=== PATIENT | female | born 1945 | race Caucasian/White ===

== ENCOUNTER 2020-02-12 12:44 | Outpatient (CLI) | payer MEDICARE, SELFPAY ==
--- NOTE | ~2020-02-12 | MMUS_ITS ---
EXAMINATION: MM diagnostic randy LT w april, US breast LT limited HISTORY: Follow-up left breast mass TECHNIQUE: Additional 3-D tomosynthesis images of the left breast were performed and synthetic 2-D im ages were generated. CAD analysis was submitted and interpreted. High resolution left breast ultrasou nd was performed. COMPARISON: Comparison to multiple prior studies sequentially, with oldest reviewed study dated 05/15. FINDINGS: MAMMOGRAPHIC FINDINGS: Breast composed of scattered areas of fibroglandular density. Significantly decreased size of mass in the upper aspect of the left breast on MLO view, likely benign. No suspicious calcifications or arch itectural distortion. ULTRASOUND: Left breast ultrasound: At 11:00, 1 cm from the nipple, there is a lipoma measuring 7 mm, benign. In the previous area of abn ormality at 10:00, 8 cm from the nipple, there is no sonographic abnormality. No suspicious solid or cystic masses to suggest malignancy. IMPRESSION: 1. No evidence for malignancy in the left breast. Benign findings. 2. Routine yearly screening mammogram and regular clinical breast examination are recommended. BI-RADS Category 2: Benign finding(s). Reviewed, dictated and finalized at location A. IMPRESSION: 1. No evidence for malignancy in the left breast. Benign findings. 2. Routine yearly screening mammogram and regular clinical breast examination a re recommended. BI-RADS Category 2: Benign finding(s).
== END 2020-02-12 12:45 | disposition home or self-care (01) ==
PROVIDERS: PCP Family Medicine; Visit Provider Family Medicine
DX: R92.8 Other abnormal and inconclusive findings on diagnostic imaging of breast (principal)
CPT/HCPCS: 76642; 77061; 77065; G0279

== ENCOUNTER 2020-11-20 11:28 | Outpatient (CLI) | payer MEDICARE, SELFPAY ==
[2020-11-20 12:37] LABS: D Dimer 1.28 ug/mL (<0.48)
[2020-11-20 12:41] LABS: Troponin I < 0.012 ng/mL (0.000-0.034)
== END 2020-11-20 11:29 | disposition home or self-care (01) ==
LOC: ANHLAB 11:31
PROVIDERS: PCP Physician Assistant; Visit Provider Physician Assistant
DX: R07.9 Chest pain, unspecified (principal)
CPT/HCPCS: 36415; 84484; 85380

== ENCOUNTER 2020-11-20 16:37 | Emergency (ER) | payer MEDICARE, SELFPAY ==
--- NOTE | ~2020-11-20 | XR_ITS ---
EXAMINATION: XR chest 1V portable INDICATION: Generalized chest pain TECHNIQUE: Portable AP chest at 1746 hours COMPARISON: None available FINDINGS: The lungs are free of acute opacities. There is no pleural effusion or pneumothorax. The ca rdiomediastinal silhouette is normal. IMPRESSION: 1. No acute cardiopulmonary abnormality. Reviewed, dictated and finalized at location A.
--- NOTE | ~2020-11-20 | CT_ITS ---
EXAMINATION: CTA chest PE protocol DATE: 11/20/2020 18:12 INDICATION: Chest pain TECHNIQUE: Computed tomography angiography (CTA) of the chest was performed with 100 mL Omnipaque-350 intravenous contrast timed to evaluate the pulmonary arteries. Coronal maximum intensity projection 3D-reconstructions were created by the technologist. The dose-length product (DLP) was 146.42 mGy-cm. Automated exposure control and iterative reconstruction technique were employed. COMPARISON: None. FINDINGS: The pulmonary arteries are well-opacified. No pulmonary embolism is identified. There is mi ld dependent atelectasis. No focal airspace opacities are present. There is no pleural effusion or pn eumothorax. No pathologically enlarged thoracic lymph nodes are identified. The heart size is normal. There is a 10 mm hyperdense lesion of the left kidney upper pole. Cysts of the visualized liver david ure up to 1.5 cm in the left hepatic lobe. There is a 1.3 cm cystic lesion tail of the pancreas. Ther e is an age-indeterminate compression fracture and the T11 vertebral body. IMPRESSION: 1. No pulmonary embolism or acute cardiopulmonary abnormality. 2. Cystic lesion in the tail of the pancreas and indeterminate hyperdense lesion of the left kidney u pper pole. Nonemergent follow-up with abdominal MRI without and with contrast is recommended for simu ltaneous evaluation of both lesions. Reviewed, dictated and finalized at location A. IMPRESSION: 1. No pulmonary embolism or acute cardiopulmonary abnormality. 2. Cystic lesion in the tail of the pancreas and indeterminate hyperdense lesio n of the left kidney upper pole. Nonemergent follow-up with abdominal MRI witho ut and with contrast is recommended for simultaneous evaluation of both lesions .
[2020-11-20 16:42] VITALS: BP 174/82; PULSE 71; RESP 27; TEMP 36.9; O2SAT 100
--- NOTE | 2020-11-20 16:56 | ECG_ITS ---
Measurements Intervals [place] Rate: 66 P: 55 MA: 137 QRS: -19 QRSD: 105 T: 12 QT: 396 QTc: 417 Interpretive Statements SINUS RHYTHM VOLTAGE CRITERIA FOR LVH BORDERLINE T WAVE ABNORMALITY- ANT/INF LEADS BASELINE ARTIFACT- I, II, III, AVR, AVL BORDERLINE ECG Electronically Signed On 11-21-2020 7:09:10 CDT by Nilesh Rhodes D.O.
[2020-11-20 18:07] LABS: Estimated CRCL calculation 31 ml/min; Estimated Glomerular Filt Rate 48
--- NOTE | 2020-11-20 18:17 | ED.GENADULT ---
HPI - General Adult General Chief complaint: Recheck/Abnormal Lab/Rx Stated complaint: elevated D-dimer today from pcp Time Seen by Provider: 11/20/20 16:47 Source: patient and family Mode of arrival: ambulatory Limitations: no limitations History of Present Illness HPI narrative: Patient is a 75-year-old female who presents to emergency department for evaluation of midsternal chest pain that lasted approximately 3 hours last night after dinner patient had [place] food noted that the pain began shortly thereafter lasted 3 hours and resolved upon going to sleep and has since been chest pain-free without discomfort patient had blood work performed by primary care was told she had an elevated D-dimer and was referred to emergency department for further evaluation. Patient has not taken anything for symptoms Related Data Allergies Allergy/AdvReac Type Severity Reaction Status Date / Time No Known Allergies Allergy Verified 11/20/20 16:55 Review of Systems Review of Systems: All systems reviewed & are unremarkable except as noted in HPI and below PMFSH Past Medical History Medical History (Updated 11/20/20 @ 20:47 by Eliot Shepard PA-C) Hyperlipidemia Hypertension Hypothyroidism Social History Social History (Updated 11/20/20 @ 18:36 by Eliot Shepard PA-C) Smoking status: Never smoker Substance use type: marijuana Exam Narrative: Exam Narrative: GENERAL: Well-appearing, well-nourished, and in no acute distress. HEAD: Normocephalic, atraumatic. EYES: PERRLA and EOMI. ENT: Nares clear, no rhinorrhea or epistaxis. Mucous membranes moist. CHEST: Clear to auscultation. No respiratory distress. No wheezes rales or rhonchi HEART: Regular rate and rhythm. No murmur heard. Normal peripheral pulses. ABDOMEN: Soft, nontender, nondistended, EXTREMITIES: Normal range of motion. No edema. SKIN: Warm, dry, no rash. NEURO: No focal deficits. Alert and oriented x3. PSYCH: Normal mood and affect. Course Course Emergency Course: Patient is a 75-year-old female who presented with pain after eating [place] food last night that lasted 3 hours and resolved patient had blood work performed this morning to include a troponin and D-dimer the troponin was negative the D-dimer was positive patient was sent in for CT imaging to rule out pulmonary embolus the CT imaging did not show any pulmonary embolism or other cardiopulmonary disease. Patient has remained pain-free throughout the day. Patient had negative troponin in the ER tonight. Patient will be discharged home for follow-up with primary care who she will contact tomorrow and will also be given cardiology's number to follow-up with as well. Patient was offered inpatient treatment but prefers to go home and does not want to stay in the hospital. Patient is hemodynamically stable ABCs and vital signs intact and stable Vital Signs Vital signs: Vital Signs Temperature 98.4 F 11/20/20 16:42 Pulse Rate 71 11/20/20 16:42 Respiratory Rate 27 H 11/20/20 16:42 Blood Pressure 174/82 H 11/20/20 16:42 Pulse Oximetry 100 11/20/20 16:42 Temperature 98.4 F 11/20/20 16:42 Pulse Rate 67 11/20/20 19:07 Respiratory Rate 19 11/20/20 19:07 Blood Pressure 138/59 L 11/20/20 19:07 Pulse Oximetry 96 11/20/20 19:07 Medical Decision Making MDM Narrative Medical decision making narrative: Patients EKGs and labs are without significant high risk changes. Cardiac risk factors were reviewed. Patient is felt likely to be low risk for ACS and reasonable for further risk stratification testing as an outpatient. Pain was not sudden or maximal in onset without tearing or ripping. quality. No other signs or symptoms to suggest aortic dissection. A low-risk Wells criteria is noted. PE is felt to be unlikely. No pneumonia or URI symptoms were seen on evaluation today. Patient is felt to b reasonable for continued evaluation as an outpatient. Patient had negative CT imaging for
[2020-11-20 18:28] LABS: Basophils Absolute Auto 0.1 K/mm3 (0.0-0.1); Basophils Percent Auto 0.8 % (0.2-1.2); Eosinophils Absolute Auto 0.2 K/mm3 (0-0.3); Eosinophils Percent Auto 2.8 % (0-4.4); Hematocrit 40.7 % (37.0-47.0); Hemoglobin 13.8 g/dL (12.0-15.0); Immature Granulocyte Absolute 0.06 K/mm3 (0.00-0.031); Immature Granulocyte Percent A 0.8 % (0-0.5); Lymphocytes Absolute Auto 1.88 K/mm3 (0.9-3.2); Lymphocytes Percent Auto 25.4 % (18.3-44.2); Mean Corpuscular HGB Conc 33.9 g/dl (32-36); Mean Corpuscular Volume 91.5 fl (80-100); Mean Platelet Volume 10.5 fl (7.4-10.4); Monocytes Absolute Auto 0.7 K/mm3 (0.1-0.6); Monocytes Percent Auto 9.3 % (2.6-8.5); Neutrophils Absolute Auto 4.5 K/mm3 (1.3-6.7); Neutrophils Percent Auto 60.9 % (45.5-73.1); Platelet Count Result 352 k/mm3 (150-375); Red Blood Count 4.45 M/mm3 (4.2-5.4); Red Cell Distribution Width 13.2 % (11.5-14.5); White Blood Count 7.4 K/mm3 (4.5-10.0)
[2020-11-20 18:38] LABS: Prothrombin Time 13.4 Seconds (11.1-14.7)
[2020-11-20 18:39] LABS: Partial Thromboplastin Time 22.4 SECONDS (22.3-36.8)
[2020-11-20 19:07] VITALS: BP 138/59; PULSE 67; RESP 19; O2SAT 96
[2020-11-20 19:18] LABS: Alanine Aminotransferase 16 U/L (4-35); Albumin Level 3.8 g/dL (3.5-5.1); Alkaline Phosphatase 54 U/L (38-126); Anion Gap 3 mmol/L (8-16); Aspartate Amino Transferase 28 U/L (14-36); Bilirubin,Total 0.6 mg/dL (0.2-1.3); Blood Urea Nitrogen 25 mg/dL (7-17); Calcium 9.2 mg/dL (8.4-10.2); Carbon Dioxide 33 mmol/L (22-30); Chloride 101 mmol/L (98-107); Estimated CRCL calculation 33 ml/min; Estimated Glomerular Filt Rate 54; Glucose 96 mg/dL (65-105); Lipase 71 U/L (23-300); Potassium 3.3 mmol/L (3.4-5.0); Sodium 137 mmol/L (137-145)
[2020-11-20 19:30] LABS: NT Pro B Type Natriuretic Pept 214 PG/ML (5-100); Troponin I < 0.012 ng/mL (0.000-0.034)
[2020-11-20 20:52] VITALS: BP 160/64; PULSE 78; RESP 16; TEMP 36.2; O2SAT 98
== END 2020-11-20 20:53 | disposition home or self-care (01) ==
PROVIDERS: Emergency Medicine Emergency Medical Services; Emergency Provider Emergency Medicine; PCP Physician Assistant
DX: R07.2 Precordial pain (principal); E78.5 Hyperlipidemia, unspecified; E03.9 Hypothyroidism, unspecified; I10 Essential (primary) hypertension; R94.31 Abnormal electrocardiogram [ECG] [EKG]
CPT/HCPCS: 36415; 71045; 71275; 80053; 83690; 83880; 84484; 85025; 85380; 85610; 85730; 93005; 99284; Q9967

== ENCOUNTER 2020-12-02 14:52 | Outpatient (CLI) | payer MEDICARE, SELFPAY ==
--- NOTE | ~2020-12-02 | MR_ITS ---
EXAMINATION: MR abdomen wo/w con DATE: 12/02/2020 15:43 INDICATION: Left kidney mass. TECHNIQUE: Magnetic resonance imaging (MRI) of the abdomen was performed without and with 12 mL Multi Ramiro intravenous contrast. Sequences included coronal T2-weighted FS FSE, coronal and axial FIESTA F S, coronal LAVA-flex, axial LAVA, axial T2-weighted FSE, axial T1-weighted dual-echo FSPGR, axial STI R FSE, and axial DWI. Postcontrast sequences included coronal LAVA-flex and a time course of axial LA VA. COMPARISON: Chest CT 11/20/2020, abdomen CT 02/03/2005 FINDINGS: There are cysts in the liver measuring up to 1.6 cm. There are gallstones in the gallbladder, which i s normal in size. The spleen is normal. There is a 1.4 cm cystic lesion in the tail of the pancreas. The adrenal glands are normal. There are cysts in the kidneys measuring up to 2.2 cm on the left. The re is a 10 mm hemorrhagic cyst in left kidney. There are no dilated loops of bowel. There are no path ologically enlarged lymph nodes. There is no free intraperitoneal fluid. IMPRESSION: 1. Benign cysts in the kidneys. 2. 1.4 cm cystic lesion in the tail of the pancreas. The differential diagnosis includes pseudocyst, intraductal papillary mucinous neoplasm (IPMN), mucinous cystic neoplasm (MCN), serous cystadenoma, a nd neuroendocrine tumor. Abdomen MRI without and with contrast is recommended in 2 years. 3. Cholelithiasis. Reviewed, dictated and finalized at location B. IMPRESSION: 1. Benign cysts in the kidneys. 2. 1.4 cm cystic lesion in the tail of the pancreas. The differential diagnosis includes pseudocyst, intraductal papillary mucinous neoplasm (IPMN), mucinous cystic neoplasm (MCN), serous cystadenoma, and neuroendocrine tumor. Abdomen MR I without and with contrast is recommended in 2 years. 3. Cholelithiasis.
== END 2020-12-02 14:53 | disposition home or self-care (01) ==
PROVIDERS: PCP Physician Assistant; Visit Provider Physician Assistant
DX: N28.1 Cyst of kidney, acquired (principal); K86.2 Cyst of pancreas; K80.20 Calculus of gallbladder without cholecystitis without obstruction
CPT/HCPCS: 74183; A9577

== ENCOUNTER 2020-12-12 13:27 | Outpatient (CLI) | payer MEDICARE, SELFPAY ==
--- NOTE | ~2020-12-12 | DEXA_ITS ---
Bone Density Report Name: Erin Drake Age: 75 Sex: Female Ethnicity: White Date of : 1945 Indication: osteopenia; monitoring treatment; parental hip fracture; height loss; prior fracture; Referring Provider: Ed, Mela Martinez Study: Bone densitometry was performed. Exam Date: December 12, 2020 Accession number: [id number] Bone Density: Region BMD T-score Z-score Classification AP Spine (L1-L4) 0.806 -2.2 0.3 Osteopenia Femoral Neck (Left) 0.564 -2.6 -0.4 Osteoporosis Total Hip (Left) 0.683 -2.1 -0.3 Osteopenia Total Hip Bilateral Avg 0.690 -2.0 -0.3 Osteopenia Femoral Neck (Right) 0.579 -2.4 -0.3 Osteopenia Total Hip (Right) 0.695 -2.0 -0.2 Osteopenia World Health Organization criteria for BMD impression classify patients as: Normal (T-score at or above -1.0), Osteopenia (T-score between -1.0 and -2.5), or Osteoporosis (T-score at or below -2.5). 10-year Fracture Risk: FRAX not reported because: Some T-score for Spine Total or Hip Total or Femoral Neck at or below -2.5 Prior hip or vertebral fracture Treated for osteopor Previous Exams: Region Exam Age BMD T-score BMD Change BMD Change Date g/cm2 vs Baseline vs Previous AP Spine(L1-L4) 12/12/2020 75 0.806 -2.2 0.018(2.3%)# 0.021(2.7%) 12/17/2015 70 0.785 -2.4 -0.003(-0.3%)# 0.038(5.0%)# 04/30/2013 67 0.747 -2.7 -0.040(-5.1%)# -0.027(-3.4%)# 04/20/2011 65 0.774 -2.5 -0.014(-1.7%) 0.024(3.2%)* 03/26/2009 63 0.750 -2.7 -0.037(-4.7%)* -0.023(-3.0%)* 03/09/2007 61 0.773 -2.5 -0.014(-1.8%) -0.014(-1.8%) 02/04/2005 59 0.788 -2.4 Total Hip(Left) 12/12/2020 75 0.683 -2.1 0.026(4.0%)# -0.011(-1.6%) 12/17/2015 70 0.693 -2.0 0.037(5.6%)# 0.004(0.6%)# 04/30/2013 67 0.689 -2.1 0.033(5.0%)# 0.030(4.6%)# 04/20/2011 65 0.659 -2.3 0.003(0.4%) 0.026(4.1%) 03/26/2009 63 0.633 -2.5 -0.023(-3.5%) -0.008(-1.2%) 03/09/2007 61 0.641 -2.5 -0.016(-2.4%) -0.016(-2.4%) 02/04/2005 59 0.657 -2.3 Total Hip(Right) 12/12/2020 75 0.695 -2.0 0.026(3.9%)# -0.002(-0.3%) 12/17/2015 70 0.697 -2.0 0.028(4.2%)# -0.003(-0.4%)# 04/30/2013 67 0.700 -2.0 0.031(4.6%)# 0.031(4.7%)# 04/20/2011 65 0.669 -2.2 0.000(-0.1%) 0.006(0.9%) 03/26/2009 63 0.663 -2.3 -0.006(-0.9%) -0.017(-2.5%) 03/09/2007 61 0.679 -2.2 0.010(1.6%) 0.010(1.6%) 02/04/2005 59 0.669 -2.2 *Denotes significance at 95% confidence level, LSC for AP Spine = 0.022 g/cm2, LSC for Total Hip = 0.027 g/cm2
== END 2020-12-12 13:28 | disposition home or self-care (01) ==
LOC: ANHIMG 13:28
PROVIDERS: PCP Physician Assistant; Visit Provider Physician Assistant
DX: M81.0 Age-related osteoporosis without current pathological fracture (principal); M85.89 Other specified disorders of bone density and structure, multiple sites
CPT/HCPCS: 77080

== ENCOUNTER 2021-02-02 10:52 | Outpatient (CLI) | payer MEDICARE, SELFPAY ==
--- NOTE | 2021-02-05 07:35 | WPDHOLTEREM ---
Holter/Event Monitor Holter/Event Monitor Date of procedure: 02/02/21 Holter/Event Procedure: 48 Hr Holter Monitor Diagnosis: Palpitations Indications: palpitations Image/Tracing Quality: good Date of interpretation 02/05/2021 Finding: monitoring for 47 hours and 59 minutes. Same analysis time. Underlying normal sinus rhythm with heart rate variability between 46 and 126 beats per minute with an average heart rate of 69 beats per minute. There is low frequency ventricular ectopy totaling 6 PVCs. There was no sustained or nonsustained runs of ventricular arrhythmia. There were no significant pauses with the longest RR interval 1.4 seconds. Low-frequency supraventricular ectopy totaling 132 beats. This consisted of 113 PACs, 3 couplets and 3 short atrial runs with the longest run being for 6 beats. The fastest run at a rate of 122 beats per minute. There is no atrial fibrillation. The AV and IV conduction assistance appear to be within normal limits. No diary was submitted Conclusion: 1. Unremarkable 48 hour Holter monitor revealing sinus rhythm with an average heart rate of 69 beats per minute. 2.Low frequency ventricular ectopy 3. Low frequency supraventricular ectopy as detailed above including atrial couplets in short atrial runs
== END 2021-02-02 10:53 | disposition home or self-care (01) ==
PROVIDERS: PCP Physician Assistant; Visit Provider Physician Assistant
DX: R00.0 Tachycardia, unspecified (principal); R00.2 Palpitations
CPT/HCPCS: 93225; 93226; 93227

== ENCOUNTER → 2022-03-15 09:46 | Outpatient (CLI) | payer MEDICARE, SELFPAY ==
--- NOTE | ~2022-03-15 | XR_ITS ---
EXAMINATION: XR chest 2V 03/15/2022 10:08 INDICATION: Productive cough PROCEDURE: 2 view chest COMPARISON: 11/20/2020 FINDINGS: The lungs are clear. The cardiomediastinal silhouette is within normal limits. There are no pleural effusions. There is no pneumothorax suspected. There is a chronic lower thoracic bautista mansi fracture. IMPRESSION: 1: NO ACUTE CARDIOPULMONARY DISEASE. Reviewed, dictated and finalized at location A.
== END ==
PROVIDERS: PCP Physician Assistant; Visit Provider Physician Assistant
DX: R05.9 Cough, unspecified (principal)
CPT/HCPCS: 71046

== ENCOUNTER → 2022-11-30 11:40 | Outpatient (CLI) | payer MEDICARE, SELFPAY ==
--- NOTE | ~2022-11-30 | XR_ITS ---
Right Shoulder Technique: AP and scapular Y views were obtained. Clinical History: Pain Findings: No fracture or dislocation is seen. Osseous alignment is anatomic. The glenohumeral and acr omioclavicular joint spaces are preserved. Soft tissues are unremarkable. Impression: Unremarkable right shoulder radiographs. Reviewed, dictated and finalized at [facility]. Impression: Unremarkable right shoulder radiographs.
== END ==
PROVIDERS: PCP Nurse Practitioner Family; Visit Provider Nurse Practitioner Family
DX: M25.511 Pain in right shoulder (principal); G89.29 Other chronic pain
CPT/HCPCS: 73030